=== PATIENT | male | born 1955 | race Caucasian/White ===

== ENCOUNTER 2020-04-05 13:06 | Observation (INO) | payer MEDICARE ==
[~2020-04-05] VITALS: Ht 182.8 cm; Wt 115.2 kg
[2020-04-05 13:16] VITALS: BP 116/55
[2020-04-05 14:05] LABS: RED CELL DISTRI WIDTH 13.7 % (0-14.5)
[2020-04-05 14:07] LABS: HEMATOCRIT 35.8 % (42.0-52.0); MEAN CELL VOLUME 89.5 fl (80.0-94.0); MEAN CORPUSCULAR HGB CONC 33.5 g/dl (33.0-37.0); MEAN PLATELET VOLUME 8.6 fl (9.6-12.3); PLATELET COUNT AUTOMATED 219 10*3/uL (130-400); WHITE BLOOD COUNT 11.6 10*3/uL (4.8-10.8)
[2020-04-05 14:24] LABS: ALKALINE PHOSPHATASE 104 U/L (45-117); BUN 17 mg/dl (7-24); CHLORIDE 104 mmol/L (98-107); CREATININE 1.18 mg/dL (0.70-1.30); LIPASE 115 U/L (73-393); POTASSIUM 3.7 mmol/L (3.5-5.1); SGOT/AST 14 IU/L (3-35); SGPT/ALT 30 U/L (12-78); SODIUM 138 mmol/L (136-145); TOTAL PROTEIN 6.4 gm/dL (6.4-8.2)
[2020-04-05 14:25] LABS: BILIRUBIN NEGATIVE (NEGATIVE); BLOOD 1+ (NEGATIVE); CLARITY CLEAR (CLEAR); COLOR YELLOW (YELLOW); GLUCOSE 1+ (NEGATIVE); KETONE NEGATIVE (NEGATIVE); LEUKO ESTERASE NEGATIVE (NEGATIVE); NITRITE NEGATIVE (NEGATIVE); SPECIFIC GRAVITY 1.025 (1.005-1.030); UROBILINOGEN 0.2 E.U./dl (0.2-1.0)
[2020-04-05 14:29] LABS: TROPONIN I < 0.015 ng/ml (<0.045)
[2020-04-05 14:34] LABS: BACTERIA TRACE; EPITHELIAL CELLS 0-2
[2020-04-05 14:42] LABS: BURR CELLS FEW; PLATELET SUFFICIENCY NORMAL (NORMAL); TOTAL CELLS COUNTED 100 #CELLS
[2020-04-05 16:04] VITALS: BP 107/55
--- NOTE | 2020-04-05 16:10 | NUR ---
A 65, admitted to , under the services of NANCY Lai DO with a diagnosis of HYPERGLYCEMIA, HEART PALPITATIONS, DIZZINESS. Chief complaint is DIZZINESS. Patient arrived via bed from ER. Monitor applied. Initial assessment completed. Vital signs taken and recorded. NANCY LAI DO notified of admission to the unit. Orders received. See assessment for past medical history, medications and allergies. Patient and/or family oriented to unit. [facility] reviewed. Clothing/patient valuable form completed. WILLIAM MARIE
--- NOTE | 2020-04-05 16:15 | NUR ---
DR VERGARA IN TO SEE PATIENT
[2020-04-05] MEDS ORDERED: PROZAC10 MG PO (16:25)
[2020-04-05] MEDS ORDERED: TRAZODONE50 MG PO (16:25)
[2020-04-05] MEDS ORDERED: ABILIFY5 MG PO (16:25)
[2020-04-05] MEDS ORDERED: DOXEPIN25 MG PO (16:26)
[2020-04-05] MEDS ORDERED: PROVENTIL HFA6.7 GM INH (16:31)
[2020-04-05] MEDS ORDERED: TRELEGY ELLIPT1 EACH INH (16:32)
--- NOTE | 2020-04-05 16:52 | NUR ---
NOTIFIED DR WILKERSON OF UPDATED MED LIST
--- NOTE | 2020-04-05 17:10 | NUR ---
CALLED DR WILKERSON TO LET HIM KNOW PT HAD POSITIVE ORTHO STATICS. RESULTS CHARTED
--- NOTE | 2020-04-05 19:00 | NUR ---
ASSUMED CARE FOR THIS PT AT THIS TIME. PT AMBULATED TO BR AND BACK TO BED W/OUT DIFF. DENIES DIZZINESS. C/O FRONTAL H/A 03/05. WILL MEDICATE. CALL LIGHT IN REACH.
[2020-04-05 20:00] VITALS: BP 139/67
--- NOTE | 2020-04-05 21:03 | NUR ---
PT MEDICATED W/650MG TYLENOL PO FOR PREVIOUS C/O H/A. PT RESTING QUEITLY IN BED. LIGHTS TURNED OFF AND DOOR SHUT PER PT REQUEST. CALL LIGHT IN REACH.
[2020-04-06] VITALS: BP 137/59
[2020-04-06 06:39] LABS: HEMATOCRIT 38.7 % (42.0-52.0); MEAN CELL VOLUME 90.6 fl (80.0-94.0); MEAN CORPUSCULAR HGB CONC 33.1 g/dl (33.0-37.0); MEAN PLATELET VOLUME 9.1 fl (9.6-12.3); PLATELET COUNT AUTOMATED 218 10*3/uL (130-400); RED BLOOD COUNT 4.27 10*6/uL (4.50-5.90); RED CELL DISTRI WIDTH 13.8 % (0-14.5); WHITE BLOOD COUNT 11.2 10*3/uL (4.8-10.8)
[2020-04-06 07:10] LABS: ALBUMIN 3.1 gm/dl (3.1-4.5); ALKALINE PHOSPHATASE 85 U/L (45-117); BUN 15 mg/dl (7-24); CHLORIDE 107 mmol/L (98-107); CHOLESTEROL 156 mg/dL (<200); FREE T4 0.93 ng/dl (0.76-1.46); HDL CHOLESTEROL 54 mg/dl (40-60); LDL CHOLESTEROL 67 mg/dL (9-159); SGOT/AST 13 IU/L (3-35); SGPT/ALT 27 U/L (12-78); SODIUM 142 mmol/L (136-145); TOTAL PROTEIN 6.4 gm/dL (6.4-8.2); TRIGLYCERIDES 175 mg/dl (<150); VLDL CHOLESTEROL 35 mg/dL (6-40)
[2020-04-06 07:14] LABS: ACT PARTIAL THROMBO TIME 25.8 SECONDS (20.0-32.1); PLATELET SUFFICIENCY NORMAL (NORMAL); TOTAL CELLS COUNTED 100 #CELLS
--- NOTE | 2020-04-06 07:29 | NUR ---
Shift chart check completed.
[2020-04-06 08:44] LABS: VITAMIN D, 25-HYDROXY 29.6 ng/mL (30-100)
[2020-04-06 08:45] VITALS: BP 120/64
--- NOTE | 2020-04-06 09:00 | NUR ---
Electromyographic Technician in to talk to patient. Patient states lives at home with his . There are 0 steps in the home. Physician: Dr. Dagoberto Sung [facility]: [facility] Home health services: none Patient's level of ADLs: INDEPENDENT Patient has working utilities: yes DME: O2 @ 3L [place] at HS, O2 supplier unknown Follow-up physician's appointment after d/c: will be made by the hospitalist nurse director upon discharge Does patient want to access PORTAL?: no Discharge plan discussed with patient. He lives at home with his . He is independent in his ADLs and ambulation. Discussed home health care services and he declines. CM will continue to follow for any discharge planning needs. When medically stable he will be discharged to home. He states his will provide transportation on discharge. STEVEN OLSON
--- NOTE | 2020-04-06 09:48 | NUR ---
DR. DOBBS IN TO SEE PATIENT.
--- NOTE | 2020-04-06 09:48 | NUR ---
PT COMPLAIN OF HEADACHE, NORCO/TYLENOL GIVEN.
--- NOTE | 2020-04-06 10:09 | NUR ---
DR. KEENAN AWARE OF ORTHOSTATIC BLOOD PRESSURES. NO NEW ORDERS AT THIS TIME
--- NOTE | 2020-04-06 10:09 | NUR ---
ECHO BEING DONE AT BEDSIDE
--- NOTE | 2020-04-06 11:01 | NUR ---
PHYSICAL THERAPY Chart review preformed, per physician note pt to discharge this morning. Will defer therapy at this time due to pt being discharged, will follow if plan to discharge changes. Thank you. Robin Isaac SPT [facility]
--- NOTE | 2020-04-06 11:17 | NUR ---
OT NOTE Occupational therapy order received and chart reviewed. Per chart review, patient is being discharged home this date. No OT evaluation completed at this time due to discharge. Will continue to follow if discharge plans change. Thank you. Eleanor Solis OTR/L
[2020-04-06 12:00] VITALS: BP 129/60
[2020-04-06] MEDS ORDERED: METFORMIN HCL500 M2 PO (12:51)
[2020-04-06] MEDS ORDERED: VITAMIN D350 MC2 PO (12:51)
--- NOTE | 2020-04-06 14:30 | NUR ---
Nutritional Support Services Note: Pt was instructed on 1800cal diabetic diet. Diet copy given to pt. Pt listened although he was anxious to be discharged. Encouraged follow up as needed. Caroline Bryant Rdn Ld
--- NOTE | 2020-04-06 15:08 | NUR ---
Discharge instructions reviewed with patient. Patient receptive and verbalizes understanding. Follow-up care understood. Written instructions given to patient. iv removed, tele removed. pt discharge via wheelchair SHAGGY GOINS
== END 2020-04-06 15:08 | disposition home or self-care (01) ==
LOC: ED 13:06 → EDHOLD 16:00 → 5E 16:06
PROVIDERS: Hospitalist; Internal Medicine; Nurse Practitioner Family; ADMIT Student in an Organized Health Care Education/Training Program
DX: R42 Dizziness and giddiness (principal); R31.9 Hematuria, unspecified; R00.2 Palpitations; D72.829 Elevated white blood cell count, unspecified; D64.9 Anemia, unspecified; E87.2 Acidosis; R79.82 Elevated C-reactive protein (CRP); J44.9 Chronic obstructive pulmonary disease, unspecified; G47.33 Obstructive sleep apnea (adult) (pediatric); F32.9 Major depressive disorder, single episode, unspecified

== ENCOUNTER → 2020-04-28 | Outpatient (CLI) | payer MEDICARE ==
[~2020-04-28] MED LIST: ABILIFY5 MG PO; DOXEPIN25 MG PO; METFORMIN HCL500 M2 PO; PROVENTIL HFA6.7 GM INH; PROZAC10 MG PO; TRAZODONE50 MG PO; TRELEGY ELLIPT1 EACH INH; VITAMIN D350 MC2 PO
[2020-04-28 10:04] LABS: HEMATOCRIT 36.1 % (42.0-52.0); MEAN CELL VOLUME 90.9 fl (80.0-94.0); MEAN CORPUSCULAR HGB 30.2 pg (27.0-31.0); MEAN CORPUSCULAR HGB CONC 33.2 g/dl (33.0-37.0); MEAN PLATELET VOLUME 8.7 fl (9.6-12.3); PLATELET COUNT AUTOMATED 276 10*3/uL (130-400); RED BLOOD COUNT 3.97 10*6/uL (4.50-5.90); RED CELL DISTRI WIDTH 13.7 % (0-14.5); WHITE BLOOD COUNT 10.9 10*3/uL (4.8-10.8)
[2020-04-28 10:24] LABS: ALBUMIN 3.4 gm/dl (3.1-4.5); ALKALINE PHOSPHATASE 95 U/L (45-117); BUN 19 mg/dl (7-24); CHLORIDE 105 mmol/L (98-107); CREATININE 1.02 mg/dL (0.70-1.30); POTASSIUM 3.8 mmol/L (3.5-5.1); SGOT/AST 15 IU/L (3-35); SGPT/ALT 38 U/L (12-78); SODIUM 138 mmol/L (136-145)
[2020-04-28 10:26] LABS: BASOPHILS 1 % (0-1); PLATELET SUFFICIENCY NORMAL (NORMAL); TOTAL CELLS COUNTED 100 #CELLS
[2020-04-29 08:10] LABS: HEP B CORE AB, IGM Negative (Negative); HEPATITIS B SURFACE AG Negative (Negative); HEPATITIS C VIRUS ANTIBODY <0.1 s/co (0.0-0.9)
== END | disposition home or self-care (01) ==
LOC: LAB 09:30
PROVIDERS: ATTEND Internal Medicine
DX: Z12.5 Encounter for screening for malignant neoplasm of prostate (principal); E11.9 Type 2 diabetes mellitus without complications; G47.33 Obstructive sleep apnea (adult) (pediatric); E55.9 Vitamin D deficiency, unspecified; R53.83 Other fatigue

== ENCOUNTER → 2020-05-13 | Outpatient (CLI) | payer MEDICARE | END | disposition home or self-care (01) | LOC: US 05-12 07:30 | PROVIDERS: ATTEND Internal Medicine | DX: I25.10 Atherosclerotic heart disease of native coronary artery without angina pectoris (principal); N28.1 Cyst of kidney, acquired; C34.90 Malignant neoplasm of unspecified part of unspecified bronchus or lung; M54.9 Dorsalgia, unspecified; J44.9 Chronic obstructive pulmonary disease, unspecified; I10 Essential (primary) hypertension; E11.9 Type 2 diabetes mellitus without complications; R53.83 Other fatigue; G47.33 Obstructive sleep apnea (adult) (pediatric); Z87.891 Personal history of nicotine dependence ==